=== PATIENT | male | born 1970 ===

== ENCOUNTER 2019-04-23 20:54 | Emergency (ER) | payer MEDICAID ==
[~2019-04-23] VITALS: Ht 175.3 cm; Wt 165.5 kg
[~2019-04-23 20:54] MED LIST: ASPI-515 PO
[2019-04-23] MEDS ORDERED: IBUPROFEN 800 MG TABLET ONE (21:18)
--- NOTE | 2019-04-23 21:21 | NUR ---
MEDICATED PER ORDER, LAB AT BEDSIDE, PT REMAINS ON MONITOR AND SEIZURE PRECAUTIONS IN PLACE, SIDE RAILS UP TIMES TWO, CALL VELA IN REACH AND AWARE OF USE. PT AWARE TO CALL FOR ASSISTANCE.
[2019-04-23 21:27] LABS: BASOPHILS # (AUTO) 0.08 x10^3/uL (0-0.1); BASOPHILS % (AUTO) 1 % (0-1); EOSINOPHILS # (AUTO) 0.51 x10^3/uL (0-0.4); EOSINOPHILS % (AUTO) 7 % (1-7); LYMPHOCYTES # (AUTO) 2.83 x10^3/uL (1-3.4); LYMPHOCYTES % (AUTO) 38 % (22-44); MD NO; MEAN CORPUSCULAR HEMOGLOBIN 31.3 pg (27.5-34.5); MEAN CORPUSCULAR HGB CONC 32.5 g/dL (33.2-36.2); MEAN CORPUSCULAR VOLUME 96.2 fL (81-97); MEAN PLATELET VOLUME 7.2 fL (7.4-10.4); MONOCYTES # (AUTO) 0.61 x10^3/uL (0.2-0.8); MONOCYTES % (AUTO) 8 % (2-9); NEUTROPHILS # (AUTO) 3.41 x10^3/uL (1.8-6.8); NEUTROPHILS % (AUTO) 46 % (42-75); PLATELET COUNT 311 x10^3/uL (130-400); RED BLOOD COUNT 3.89 x10^6/uL (4.38-5.82); RED CELL DISTRIBUTION WIDTH 14.5 % (9.4-14.8)
[2019-04-23] MEDS ORDERED: IBUPROFEN 600 MG TABLET PO ONE (21:30)
[2019-04-23 21:40] LABS: ALBUMIN 3.4 g/dL (3.4-5.0); ANION GAP 7 mmol/L (5-15); CALCIUM 8.9 mg/dL (8.5-10.1); CHLORIDE 110 mmol/L (98-107); CREATININE 0.92 mg/dL (0.7-1.3)
[2019-04-23 21:44] LABS: TROPONIN I < 0.015 ng/mL (0.000-0.045)
[2019-04-23 22:30] VITALS: BP 121/83
== END 2019-04-23 22:40 | disposition home or self-care (01) ==
LOC: ED 22:05
DX: S29.012A Strain of muscle and tendon of back wall of thorax, initial encounter (principal); J15.9 Unspecified bacterial pneumonia; G40.909 Epilepsy, unspecified, not intractable, without status epilepticus; Z87.891 Personal history of nicotine dependence; X58.XXXA Exposure to other specified factors, initial encounter; Y93.89 Activity, other specified; Y92.89 Other specified places as the place of occurrence of the external cause; Y99.8 Other external cause status
CPT/HCPCS: 36415; 71046; 80048; 82040; 84484; 85025; 93005; 99284

== ENCOUNTER 2019-07-10 08:17 | Emergency (ER) | payer OTHER, MEDICAID ==
[~2019-07-10] VITALS: Ht 175.3 cm; Wt 61.0 kg
--- NOTE | 2019-07-10 08:52 | NUR ---
THIS IS A 49 YEAR OLD MALE WHO WAS BIB EMS FOR L-SIDED CHEST PAIN SINCE YESTERDAY EVENING AT 1800. PT TREATED AT [facility] OVERNIGHT, HAD HEART CATH, NO STENTING, AND LEFT AMA DURING THE NIGHT. CHEST PAIN WORSE WITH DEEP BREATHING. PT STATES, "I CAN'T SLEEP AND IT HURTS TO BE ON MY BACK." 324MG ASA GIVEN BY EMS WELL NITRO X1 WITH NO RELIEF.
[2019-07-10 09:26] LABS: BASOPHILS # (AUTO) 0.07 x10^3/uL (0-0.1); BASOPHILS % (AUTO) 1 % (0-1); EOSINOPHILS # (AUTO) 0.05 x10^3/uL (0-0.4); EOSINOPHILS % (AUTO) 0 % (1-7); LYMPHOCYTES # (AUTO) 1.93 x10^3/uL (1-3.4); LYMPHOCYTES % (AUTO) 16 % (22-44); MD NO; MEAN CORPUSCULAR HEMOGLOBIN 30.8 pg (27.5-34.5); MEAN CORPUSCULAR HGB CONC 32.4 g/dL (33.2-36.2); MEAN PLATELET VOLUME 7.4 fL (7.4-10.4); MONOCYTES % (AUTO) 7 % (2-9); NEUTROPHILS # (AUTO) 9.39 x10^3/uL (1.8-6.8); NEUTROPHILS % (AUTO) 77 % (42-75); PLATELET COUNT 332 x10^3/uL (130-400); RED BLOOD COUNT 4.12 x10^6/uL (4.38-5.82); RED CELL DISTRIBUTION WIDTH 14.4 % (9.4-14.8)
[2019-07-10 09:41] LABS: ALBUMIN 3.3 g/dL (3.4-5.0); ANION GAP 5 mmol/L (5-15); CALCIUM 9.2 mg/dL (8.5-10.1); CHLORIDE 103 mmol/L (98-107); CREATININE 0.88 mg/dL (0.7-1.3)
[2019-07-10 09:44] LABS: TROPONIN I < 0.015 ng/mL (0.000-0.045)
--- NOTE | 2019-07-10 09:51 | NUR ---
REPORT TO ELIAN FLEMING, PLAN OF CARE DISCUSSED
--- NOTE | 2019-07-10 10:00 | NUR ---
REPORT FROM ESTRELLITA FLEMING VSS ON ELECTRICAL LOGGING OPERATOR-NOTED CHRONIC BBB PATIENT COMPLAINING OF CONTINUED LEFT CHEST PAIN RATED AT 8/10 PATIENT REPORTS HE RECEIVED ASA FROM TREATING ENGINEER TESTING REVIEWED-PROVIDER TO BEDSIDE TO RE-ASSESS (STILL NEEDS RECORDS FROM [facility])
[2019-07-10] MEDS ORDERED: KETOROLAC 30 MG/1 ML ONE (10:48)
[2019-07-10] MEDS ORDERED: KETOROLAC 30 MG/1 ML IVPush ONE (11:00)
[2019-07-10 12:30] VITALS: BP 133/77
--- NOTE | 2019-07-10 12:40 | NUR ---
WITH REASSESSMENT. PAIN IMPROVED TO 1/10 RESTING COMFORTABLY VSS ON BUSINESS OFFICE COORDINATOR
== END 2019-07-10 13:41 | disposition home or self-care (01) ==
LOC: ED 13:30
DX: R07.2 Precordial pain (principal); G40.909 Epilepsy, unspecified, not intractable, without status epilepticus; Z87.891 Personal history of nicotine dependence
CPT/HCPCS: 36415; 71045; 80048; 82040; 83880; 84484; 85025; 93005; 96374; 99284; J1885

== ENCOUNTER 2019-08-31 15:58 | Emergency (ER) | payer OTHER, MEDICAID ==
[~2019-08-31] VITALS: Ht 175.3 cm; Wt 63.0 kg
[2019-08-31 16:05] VITALS: BP 126/89
--- NOTE | 2019-08-31 16:13 | NUR ---
PT AMB TO AND FROM TRIAGE WITH LIMP, BUT STEADY GAIT.
--- NOTE | 2019-08-31 17:27 | NUR ---
With assessment patient reported "I'm here because the tylenol isn't working." With further assessment patient became agitated and walked out reporting "I'll go to [facility] you guys are Retarded." lens silverer/Provider made aware
== END 2019-08-31 17:30 | disposition left against medical advice (07) ==
LOC: ED 16:00
DX: S82.001A Unspecified fracture of right patella, initial encounter for closed fracture (principal); X58.XXXA Exposure to other specified factors, initial encounter; Y93.89 Activity, other specified; Y92.89 Other specified places as the place of occurrence of the external cause; Y99.8 Other external cause status
CPT/HCPCS: 99283

== ENCOUNTER 2019-10-21 21:53 | Emergency (ER) | payer OTHER, MEDICAID ==
[~2019-10-21] VITALS: Ht 175.3 cm; Wt 71.6 kg
[2019-10-21] MEDS ORDERED: SODIUM CHLORIDE FLUSH 10ML SYR IVF ONE (22:30)
--- NOTE | 2019-10-21 22:31 | NUR ---
pt oscar with wound to left charles. wound has some drainage and has redness around scab. per pt it was injured 4 days ago. Vss. Tech at [facility] to start piv. call light in reach
--- NOTE | 2019-10-21 23:27 | NUR ---
#[phone] CALL FOR RIDE HOME
[2019-10-21] MEDS ORDERED: CEFTRIAXONE PMX 1GM/50ML 50 ML ONE (23:28)
[2019-10-21] MEDS ORDERED: CEFTRIAXONE PMX 1GM/50ML 50 ML IV ONE (23:30)
[2019-10-21 23:32] VITALS: BP 122/72
--- NOTE | 2019-10-21 23:41 | NUR ---
ABX RUNNING. VSS. WAITING FOR LAB RESULTS
[2019-10-21 23:42] LABS: BASOPHILS # (AUTO) 0.05 x10^3/uL (0-0.1); BASOPHILS % (AUTO) 1 % (0-1); EOSINOPHILS # (AUTO) 0.11 x10^3/uL (0-0.4); EOSINOPHILS % (AUTO) 1 % (1-7); LYMPHOCYTES # (AUTO) 1.28 x10^3/uL (1-3.4); LYMPHOCYTES % (AUTO) 13 % (22-44); MD NO; MEAN CORPUSCULAR HEMOGLOBIN 30.9 pg (27.5-34.5); MEAN CORPUSCULAR HGB CONC 32.8 g/dL (33.2-36.2); MEAN CORPUSCULAR VOLUME 94.3 fL (81-97); MEAN PLATELET VOLUME 7.9 fL (7.4-10.4); MONOCYTES # (AUTO) 1.18 x10^3/uL (0.2-0.8); MONOCYTES % (AUTO) 12 % (2-9); NEUTROPHILS % (AUTO) 74 % (42-75); PLATELET COUNT 273 x10^3/uL (130-400); RED BLOOD COUNT 3.92 x10^6/uL (4.38-5.82); RED CELL DISTRIBUTION WIDTH 15.2 % (9.4-14.8)
[2019-10-21 23:53] LABS: ALANINE AMINOTRANSFERASE 19 U/L (12-78); ALBUMIN 3.4 g/dL (3.4-5.0); ANION GAP 5 mmol/L (5-15); CALCIUM 8.5 mg/dL (8.5-10.1); CHLORIDE 106 mmol/L (98-107); CREATININE 0.99 mg/dL (0.7-1.3)
[2019-10-21 23:56] LABS: ALKALINE PHOSPHATASE 78 U/L (45-117); BILIRUBIN,TOTAL 0.7 mg/dL (0.2-1.0); TOTAL PROTEIN 7.3 g/dL (6.4-8.2)
--- NOTE | 2019-10-22 00:30 | NUR ---
piv removed. pt verbalized understanding of dicharge instructions. pt getting dressed.
== END 2019-10-22 00:42 | disposition home or self-care (01) ==
LOC: ED 10-22 00:38
DX: L02.416 Cutaneous abscess of left lower limb (principal); L03.116 Cellulitis of left lower limb; F17.210 Nicotine dependence, cigarettes, uncomplicated
CPT/HCPCS: 36415; 80053; 85025; 96365; 99284; J0696

== ENCOUNTER 2020-12-02 23:19 | Emergency (ER) | payer MEDICAID, OTHER ==
[~2020-12-02] VITALS: Ht 175.3 cm; Wt 72.8 kg
[~2020-12-02 23:19] MED LIST changes: -ASPI-515 PO; +ASPI-963 PO
[2020-12-02] MEDS ORDERED: CEPHALEXIN 500 MG CAPSULE ONE (23:58)
[2020-12-02] MEDS ORDERED: ONDANSETRON ODT 4 MG ONE (23:58)
[2020-12-02] MEDS ORDERED: SULFAMETH./TRIMETHOPRIM DS 800MG/160MG TABLET ONE (23:58)
[2020-12-02] MEDS ORDERED: OXYcodone/APAP 5/325MG TABLET ONE (23:59)
[2020-12-02] MEDS ORDERED: L.E.T SOLUTION TP ONE (23:59)
[2020-12-02] MEDS ORDERED: IBUPROFEN 600 MG TABLET ONE (23:59)
[2020-12-03] MEDS ORDERED: SULFAMETH./TRIMETHOPRIM DS 800MG/160MG TABLET PO ONE
[2020-12-03] MEDS ORDERED: OXYcodone/APAP 5/325MG TABLET PO ONE
[2020-12-03] MEDS ORDERED: IBUPROFEN 600 MG TABLET PO ONE
[2020-12-03] MEDS ORDERED: ONDANSETRON ODT 4 MG PO ONE
[2020-12-03] MEDS ORDERED: L.E.T SOLUTION TP ONE
[2020-12-03] MEDS ORDERED: CEPHALEXIN 500 MG CAPSULE PO ONE
[2020-12-03 00:09] VITALS: BP 137/89
--- NOTE | 2020-12-03 00:09 | NUR ---
FIRST CONTACT W PT. PT AWAKE/ALERT, NAD NOTED. PT MEDICATED PER EMAR FOR PAIN. LET APPLIED.
--- NOTE | 2020-12-03 00:38 | NUR ---
TECH IN TO DRESS WOUNDS. DC EDUCATION PROVIDED, PT DEMONSTRATES UNDERSTANDING. PT AMBULATED STEADILY TO DC WITH RN. PT REFUSING OFFER OF TAXI VOUCHER
== END 2020-12-03 01:10 | disposition home or self-care (01) ==
LOC: ED 23:49
DX: N48.22 Cellulitis of corpus cavernosum and penis (principal); G40.909 Epilepsy, unspecified, not intractable, without status epilepticus; Z87.891 Personal history of nicotine dependence
CPT/HCPCS: 99284; Q0162